=== PATIENT | female | born 1980 | race Caucasian/White ===

== ENCOUNTER → 2019-06-20 | Day surgery (SDC) | payer BC ==
--- NOTE | 2019-06-19 15:58 | HP ---
PREOPERATIVE HISTORY AND PHYSICAL EXAM: DATE OF SURGERY/ADMISSION: 06/20/19 DATE OF OFFICE VISIT/ENCOUNTER: 06/19/19 ATTENDING SURGEON: Lesia Ocampo MD * (DICTATED BY FARIHA YOUNGBLOOD) PROCEDURE: Left index finger incision and drainage. HISTORY OF PRESENT ILLNESS: This is a 38-year-old female who complains of chronic swelling and pain in her left index finger ongoing since February 2019. She does not recall any specific injury. She has had 3 separate courses of antibiotics including amoxicillin, doxycycline, and clindamycin. She is now using an antifungal cream because she recently had a positive eric culture. She had one in-office incision and drainage by hand surgeon in [facility] several weeks ago, but it did not resolve the problem. She has consented to proceed with another incision and drainage of the finger. She reports that it is possible that she is and she is currently nursing. If urine hCG is positive, local anesthetic only will be used. PAST MEDICAL HISTORY: Unremarkable. PAST SURGICAL HISTORY: 1. Molar implant. 2. Umbilical hernia repair. CURRENT MEDICATIONS: 1. Ciclopirox olamine 0.77% apply to affected area twice daily. 2. Fluconazole 150 mg 1 tab daily. 3. vitamin daily. 4. Probiotic daily. 5. Vitamin C 500 mg daily. ALLERGIES: No known drug allergies. FAMILY MEDICAL HISTORY: Cancer. SOCIAL HISTORY: The patient is a homemaker. She denies tobacco use and recreational drug use. She drinks alcohol on occasion. REVIEW OF SYSTEMS: Negative for general, cephalic, cardiovascular, respiratory , GI, , other musculoskeletal, integumentary, endocrine, neurologic, and hematologic symptoms. Infectious Disease: Negative for MRSA, hepatitis C, HIV. PHYSICAL EXAMINATION GENERAL: Well-developed, well-nourished 38-year-old female, in no acute distress. VITAL SIGNS: Height 5 feet 6-1/2 inches, weight 128 pounds, blood pressure 106/ 64. HEENT: Normocephalic, atraumatic. Pupils are equal, round, and reactive to light and accommodation. Extraocular movements are intact. Throat is clear. NECK: Supple. No palpable lymph nodes. PULMONARY: Lungs are clear to auscultation bilaterally. No wheezes, rales, or rhonchi. CARDIOVASCULAR: Regular rate and rhythm. S1, S2. No murmurs, rubs, or gallops. No edema. ABDOMEN: Positive bowel sounds, soft, nontender. MUSCULOSKELETAL: On exam of her left index finger, she has erythema on the radial aspect around the fingernail and has fingernail changes with rippling. She can flex and extend the finger fully with some pain. Neurovascular function is intact. NEUROLOGIC: Alert and oriented x3. Cranial nerves II through XII are intact. IMPRESSION: Chronic paronychia, left index finger. PLAN: The patient is scheduled to undergo a left index finger incision and drainage with Dr. Ocampo on 06/20/19. She will return to the office 10 days postop for followup and suture removal. A prescription for Ultracet was e- scribed to the patient's pharmacy for postoperative pain management. FARIHA YOUNGBLOOD [id number]/[facility] #: [id number] MTDD
[~2019-06-20] MED LIST: Buffered Lidocaine 1% SYRIN* 1 ML/SYRINGE INTRADERM ONE; Lactated Ringers 1000 ML Bag* 1,000 ML IV SCH; Lidocaine 1% INJ* 10 MG/ML 30 ML SDV ONE
[2019-06-20 10:20] VITALS: BP 123/66
--- NOTE | 2019-06-20 13:25 | OP ---
CC: Dr. Ocampo* OPERATIVE REPORT: DATE OF OPERATION: 06/20/19 - [facility] DATE OF : 82 SURGEON: Lesia Ocampo MD SHEEP SHEARER: FARIHA Lopez ANESTHESIOLOGIST: Martha Cornell MD ANESTHESIA: Local. PRE-OP DIAGNOSIS: Chronic paronychia of the left index finger. POST-OP DIAGNOSIS: Chronic paronychia of the left index finger. OPERATIVE PROCEDURE: I and D of the left index finger. ESTIMATED BLOOD LOSS: Zero. TOURNIQUET TIME: About 10 minutes. INDICATION FOR PROCEDURE: Cris is a 38-year-old female who has had chronic swelling and redness and fingernail changes in her left index finger for 3 months now. She has had 3 different courses of antibiotic and an I and D in an office with an orthopedist in [facility] as well as an antifungal cream. She has persistent swelling and pain. She presents for I and D of the left index finger. DESCRIPTION OF PROCEDURE: The patient was brought to the operating room and was given a digital block with 10 cc of 1% plain lidocaine. Skin of her left hand and forearm was prepped and draped in the usual sterile fashion. The index finger was exsanguinated with Tourni-Cot which was left in place during the procedure. Iris scissors was used to cut out the deformed portion of the finger nail all the way back to the proximal aspects of the nail. This was sent for pathology. Dorsal wedge of skin also was cut out from the eponychium and this was sent for pathology. Cultures were obtained, aerobic, anaerobic, and fungal. The wound was then copiously irrigated with saline. The marsupialization resection was left open. The wound was dressed with Xeroform, 4x4, Kerlix, and Coban. The patient tolerated the procedure well and was brought to the recovery room in good condition. [id number]/[facility] #: [id number] MTDD
== END | disposition home or self-care (01) ==
LOC: OR 07:36 → MERGE 10:30
PROVIDERS: ATTEND Orthopaedic Surgery
DX: L03.012 Cellulitis of left finger (principal)
CPT/HCPCS: 87070; 87073; 87077; 87106; 87186; 87205; 88304; 88312; 88341; 88342